=== PATIENT | male | born 1945 | race Caucasian/White ===

== ENCOUNTER 2017-10-28 07:43 | Day surgery (SDC) | payer OTHER ==
[~2017-10-28 07:43] MED LIST: ATORVASTATIN CA40 MG PO; GABAPENTIN300 MG PO; HUMALOG100 UNIT/1; HYZAAR 50-12.51 EACH PO; METFORMIN HCL500 MG PO; SINGULAIR10 MG PO; XARELTO10 MG PO
[2017-10-28] MEDS ORDERED: DUI500 PO (13:51)
[2017-10-28] MEDS ORDERED: OXYC1TAB9 PO (13:51)
== END 2017-10-28 16:30 | disposition home or self-care (01) ==
LOC: CIR.AMB 07:43
DX: M75.122 Complete rotator cuff tear or rupture of left shoulder, not specified as traumatic (principal); S46.111A Strain of muscle, fascia and tendon of long head of biceps, right arm, initial encounter